=== PATIENT | male | born 1990 | race Caucasian/White ===

== ENCOUNTER 2016-09-13 22:35 | Emergency (ER) | payer OTHER ==
[~2016-09-13] VITALS: Ht 180.3 cm; Wt 75.0 kg
[2016-09-13 22:37] VITALS: BP 124/77
== END 2016-09-14 00:25 | disposition home or self-care (01) ==
LOC: ED 23:59
DX: R05 Cough (principal); J00 Acute nasopharyngitis [common cold]
CPT/HCPCS: 71010; 99283